=== PATIENT | female | born 1960 | race Caucasian/White ===

== ENCOUNTER → 2022-01-04 | Outpatient (CLI) | payer OTHER ==
[~2022-01-04] MED LIST: CRANBERRY PO; DILTIAZEM 12HR90 MG PO; LASIX20 MG PO; LORATADINE10 MG PO; MEGA BIOTIN10000 MCG PO; MOBIC7.5 MG PO; NORVASC10 MG PO; PLAQUENIL200 MG PO; PROVENTIL HFA6.7 GM INH; REMERON15 MG PO; ROPINIROLE HC0.25 MG PO; SPIRONOLACTONE100 MG PO; TIZANIDINE HCL4 M1 PO; TIZANIDINE HCL4 MG PO; VITAMIN B12 PO; VITAMIN D3125 MCG PO
[2022-01-04 11:37] LABS: HEMOGLOBIN 14.5 gm/dl (12.3-15.3); RED BLOOD COUNT 4.53 M/UL (4.00-5.10); WHITE BLOOD COUNT 9.8 K/UL (4.5-11.0)
== END ==
LOC: EDSTATUS 10:00 → OPSV2 10:00
PROVIDERS: Orthopaedic Surgery
DX: Z01.818 Encounter for other preprocedural examination (principal); M16.11 Unilateral primary osteoarthritis, right hip; Z88.0 Allergy status to penicillin; Z91.041 Radiographic dye allergy status; R94.31 Abnormal electrocardiogram [ECG] [EKG]
CPT/HCPCS: 36415; 80048; 83036; 85025; 93005

== ENCOUNTER → 2022-04-05 | Outpatient (CLI) | payer OTHER ==
[~2022-04-05] MED LIST changes: +HUMALOG MI100 UNITS/ SQ; +LIPITOR TAB 2020 MG PO; +LOSARTAN POTASS50 MG PO; +ZEGERID 20 MG1 EACH PO
[2022-04-05 13:24] LABS: HEMOGLOBIN 15.3 gm/dl (12.3-15.3); RED BLOOD COUNT 4.64 M/UL (4.00-5.10); WHITE BLOOD COUNT 12.7 K/UL (4.5-11.0)
== END ==
LOC: EDSTATUS 12:30 → OPSV2 12:30
PROVIDERS: Orthopaedic Surgery
DX: Z01.818 Encounter for other preprocedural examination (principal); M16.11 Unilateral primary osteoarthritis, right hip; Z88.8 Allergy status to other drugs, medicaments and biological substances; I10 Essential (primary) hypertension; E78.2 Mixed hyperlipidemia; E11.9 Type 2 diabetes mellitus without complications; R91.8 Other nonspecific abnormal finding of lung field; R00.1 Bradycardia, unspecified; R94.31 Abnormal electrocardiogram [ECG] [EKG]; I25.2 Old myocardial infarction
CPT/HCPCS: 36415; 71046; 80048; 85025; 85652; 86140; 93005

== ENCOUNTER 2022-04-18 07:50 | Day surgery (SDC) | payer OTHER ==
[~2022-04-18] VITALS: Ht 162.6 cm; Wt 114.4 kg
[~2022-04-18 07:50] MED LIST changes: -DILTIAZEM 12HR90 MG PO; -LASIX20 MG PO; -LORATADINE10 MG PO; -MOBIC7.5 MG PO; -NORVASC10 MG PO; -PLAQUENIL200 MG PO; -REMERON15 MG PO; -ROPINIROLE HC0.25 MG PO; -SPIRONOLACTONE100 MG PO; -TIZANIDINE HCL4 MG PO; -VITAMIN B12 PO; -VITAMIN D3125 MCG PO; -ZEGERID 20 MG1 EACH PO
[2022-04-18] MEDS ORDERED: NORVASC10 MG PO (12:12)
[2022-04-18] MEDS ORDERED: LORATADINE10 MG PO (12:13)
[2022-04-18] MEDS ORDERED: DILTIAZEM 12HR90 MG PO (12:13)
[2022-04-18] MEDS ORDERED: PLAQUENIL200 MG PO (12:13)
[2022-04-18] MEDS ORDERED: ROPINIROLE HC0.25 MG PO (12:15)
[2022-04-18] MEDS ORDERED: LASIX20 MG PO (12:16)
[2022-04-18] MEDS ORDERED: SPIRONOLACTONE100 MG PO (12:16)
[2022-04-18] MEDS ORDERED: REMERON15 MG PO (12:17)
[2022-04-18] MEDS ORDERED: MELOXICAM7.5 MG PO (12:17)
[2022-04-18] MEDS ORDERED: TIZANIDINE HCL4 MG PO (12:18)
[2022-04-18] MEDS ORDERED: VITAMIN D3125 MCG PO (12:18)
[2022-04-18] MEDS ORDERED: VITAMIN B-121000 MC3 PO (12:19)
[2022-04-18] MEDS ORDERED: ZEGERID 20 MG1 EACH PO (14:38)
[2022-04-18] MEDS ORDERED: PROAIR HFA8.5 GM INH (20:43)
[2022-04-19] MEDS ORDERED: ELIQUIS 2.5 MG2.5 MG PO (11:22)
== END 2022-04-19 15:23 | disposition home or self-care (01) ==
LOC: M/S 07:50 → OR 07:50 → M/S 16:56 → OR 16:56
PROVIDERS: Orthopaedic Surgery
DX: M16.11 Unilateral primary osteoarthritis, right hip (principal); G89.29 Other chronic pain; I12.9 Hypertensive chronic kidney disease with stage 1 through stage 4 chronic kidney disease, or unspecified chronic kidney disease; E11.22 Type 2 diabetes mellitus with diabetic chronic kidney disease; N18.30 Chronic kidney disease, stage 3 unspecified; J45.909 Unspecified asthma, uncomplicated; E66.9 Obesity, unspecified; E78.5 Hyperlipidemia, unspecified; K21.9 Gastro-esophageal reflux disease without esophagitis; F41.9 Anxiety disorder, unspecified; Z88.0 Allergy status to penicillin; Z88.8 Allergy status to other drugs, medicaments and biological substances; Z91.041 Radiographic dye allergy status; Z68.36 Body mass index [BMI] 36.0-36.9, adult; Z79.4 Long term (current) use of insulin; Z79.1 Long term (current) use of non-steroidal anti-inflammatories (NSAID); Z79.899 Other long term (current) drug therapy
CPT/HCPCS: 72170; 73502; 76000; 80048; 82962; 86850; 86900; 86901; 97162; 97165; 97530; 97535; C1776; J0690; J1100; J1170; J1885; J2001; J2274; J2550; J2704; J2710; J3370; J7050